=== PATIENT | male | born 1965 | race Caucasian/White ===

== ENCOUNTER 2018-07-21 12:57 | Day surgery (SDC) | payer OTHER ==
[2018-07-20 08:45] VITALS: BMI 37.3
[2018-07-21] MEDS ORDERED: ceFAZolin SODIUM 1 GM VIAL IVPB ONE (13:21)
[2018-07-21] MEDS ORDERED: MIDAZOLAM HCL 2 MG/2 ML SINGLE DOSE VIAL ONE ×2 (14:46)
[2018-07-21] MEDS ORDERED: PROPOFOL 20 ML ONE (15:08)
[2018-07-21] MEDS ORDERED: PROMETHAZINE HCL 25 MG/1 ML VIAL IVPUSH PRN (16:30)
[2018-07-21] MEDS ORDERED: LACTATED RINGERS SOLUTION 1,000 ML IV SCH (16:30)
[2018-07-21] MEDS ORDERED: oxyCODONE HCL 5 MG TABLET PO PRN (16:30)
--- NOTE | 2018-07-21 16:30 | HP ---
[facility]ellite [facility] - Chief Complaint Chief Complaint: left elbow pain - Past Medical History Allergies/Adverse Reactions: Allergies Allergy/AdvReac Type Severity Reaction Status Date / Time No Known Allergies Allergy Verified 07/21/18 13:36 - Current Medications Current Medications: Home Medications Medication Instructions Recorded Oxycodone HCl/Acetaminophen 1 - 2 tab PO Q6H #30 tab MDD 6 07/21/18 [Percocet 5-325 mg Tablet] Satellite Physical Exam - Physical Examination Vital Signs: Vital Signs Period Temp Pulse Resp BP Sys/Mendoza Pulse Ox Last 24 Hr 98.3 F 84 16 145/92 99 General Appearance: Well Nourished, Well Developed, Alert & Oriented x3 ENT: Clear Lung: Normal air movement Heart: Regular rate & rhythm Extremities: Other (left elbow- + swelling, + ecchymosis, + sil deformity, + palpable defect, good rom, nvi) Neurological: Intact, Alert, Oriented Satellite Impression/Plan - Impression/Plan Impression: left distal biceps tendon rupture Operative Procedure: left distal biceps tendon repair Date to be Performed: 07/21/18
[2018-07-21] MEDS ORDERED: DESFLURANE GAS 240 ML BOTTLE IH ONE (17:03)
--- NOTE | 2018-07-21 17:52 | OP ---
Operative Note - Note: Operative Date: 07/21/18 Pre-Operative Diagnosis: left distal biceps tendon rupture Operation: left distal biceps tendon repair Implants: fiber wire x 2 Surgeon: Ronal Wynn Anesthesiologist/DRIER TRANSFER CAR OPERATOR: Stacey Ngo (w) Anesthesia: Local, MAC Estimated Blood Loss (mls): 0 Drains, Volume Out (mls): 0 Blood Volume Replaced (mls): 0 Fluid Volume Replaced (mls): 1,200 Operative Report Dictated: Yes
[2018-07-21] MEDS ORDERED: ONDANSETRON 4 MG/2 ML VIAL ONE (18:52)
[2018-07-21] MEDS ORDERED: ONDANSETRON 4 MG/2 ML VIAL IVPUSH ONE ×2 (19:02→19:03)
--- NOTE | 2018-07-21 19:53 | OP ---
DATE OF OPERATION: DATE OF DICTATION: 07/21/2018 PREOPERATIVE DIAGNOSIS: Left distal biceps tendon rupture. POSTOPERATIVE DIAGNOSIS: Left distal biceps tendon rupture. PROCEDURE PERFORMED: Left distal biceps tendon joint repair. SURGEON: Calvin Rosado MD ASSISTANTS: None. ANESTHESIOLOGIST: MALCOLM Ngo ANESTHESIA: MAC anesthesia with left interscalene block. DRAINS: None. COMPLICATIONS: None. SPECIMENS: None. FLUID REPLACEMENT: PlasmaLyte 1000 mL. INDICATIONS: The patient is a 52-year-old male with preoperative diagnosis of an acute left distal biceps tendon rupture. After understanding the potential risks, complications, alternatives and benefits of surgery versus nonsurgical treatment, the patient elected to undergo this procedure. DESCRIPTION OF PROCEDURE: The patient was brought to the operating room, peripheral IV placed, IV sedation given. IV Ancef 3 g was given. Deep MAC anesthesia was introduced after an interscalene block was performed. Ample Webril was placed on the left upper arm. Tourniquet was applied. He was in the supine position. The left upper extremity was prepped and draped in sterile fashion, elevated and exsanguinated with an Esmarch and tourniquet inflated to 250 mmHg. An anterior incision was made within the anterior flexion crease with a No. 15 scalpel blade. Subcutaneous hemostasis was achieved with the bipolar cautery. Dissection was done down to the biceps tendon sheath. An acute inflammatory fluid hematoma was evacuated. I was able to easily capture the distal biceps tendon, which was completely ruptured. The area was irrigated and washed out. The distal biceps was gently debrided. Two FiberWire locking stitches were placed up and down the medial and lateral aspect of the distal biceps tendon. Next, using a curved Kendra clamp, I followed with my finger and then with the clamp the tract of the biceps tendon sheath through the proximal radius and ulna. The patient is quite large and has a very thick forearm. At first I came out in a slightly more ulnar location, although not next to the ulnar periosteum. I did make an incision over this spot, dissected down, and I thought that I would be able to pass the biceps tendon through this location, but upon further dissection, I thought otherwise. I thought that I could get a much better access point to the radial styloid and therefore this wound was irrigated and closed up with 2-0 Vicryl in the deep muscular fascial layer, 2-0 Vicryl in the deep dermal layer and skin reapproximation done with running 4-0 Biosyn and Steri-Strips. Next, I passed the curved Kendra to a point that I was happier with, right next to the radial styloid and again made an incision in the skin over this, Kendra forceps, dissected down, achieved subcutaneous hemostasis with bipolar cautery. Went through the muscular fascia. Used the Arriola elevator to do a periosteal dissection and expose the radial styloid. At this point the curved Kendra clamp was right next to the radial styloid. I then passed the sutures from the anterior to the posterior wound. I then closed the wound, after irrigating it, with 2-0 Vicryl in the deep dermal layer and final skin reapproximation done with a running subcuticular 4-0 Biosyn stitch and Steri-Strips. Next, we used Arriola elevators and Lynch retractors to retract the muscular tissue. As mentioned, the patient's forearm was quite thick and we were operating in a deep hole. That being said, I tried to keep the incision as small as possible, and was able to visualize the area quite well. Under direct visualization, I used a bur to bur out the radial styloid and made a smooth edge to the crater. The crater was big and deep enough, and it was irrigated and washed out. Next, I used a 2-mm drill bit to make 2 drill holes in the roof of the radial styloid crater. Then, using a nitinol wire, I passed the sutures from the distal biceps tendon through the 2 holes in the bony roof of the crater and brought the tendon into the crater. It came in quite nicely. I was able to stuff it in further using forceps. Then, with the arm in neutral, I tied the FiberWire sutures over the bony bridge and then to each other as an insurance stitch. I then moved the arm a bit, without putting tension on the repair, and it moved quite well with the radius. The area was irrigated and washed out. The deep fascial layer was closed with 2-0 Vicryl. The deep dermal layer was closed with 2-0 undyed Vicryl. Final skin reapproximation was done with a running subcuticular 4-0 Biosyn stitch and Steri-Strips. The area was then washed, dried, covered with 4 x 4 gauze, Webril and a 5-inch Ortho-Glass posterior splint was applied and wrapped with 2 Kiran bandages. The tourniquet was taken down after a total tourniquet time of 118 minutes. There were no complications during the case. The patient tolerated the procedure quite well and was brought to the ambulatory recovery room in stable condition. Total operative time, as mentioned, was 118 minutes. Blood loss was minimal. Blood given was none. Fluid replacement was 1200 mL of PlasmaLyte. CALVIN ROSADO M.D. [id number]
[2018-07-21 20:29] VITALS: BP 127/78; PULSE 80; TEMP 97.8
== END 2018-07-21 20:30 | disposition home or self-care (01) ==
LOC: JASU-SURG 12:57
PROVIDERS: ATTEND Orthopaedic Surgery
PROC: 0LQ40ZZ Repair Left Upper Arm Tendon, Open Approach (ICD-10-PCS; principal; 2018-07-21 14:30)
DX: S46.212A Strain of muscle, fascia and tendon of other parts of biceps, left arm, initial encounter (principal); X58.XXXA Exposure to other specified factors, initial encounter; Y93.9 Activity, unspecified; Y92.9 Unspecified place or not applicable
CPT/HCPCS: 94760